=== PATIENT | female | born 1970 | race Hispanic/Latino ===

== ENCOUNTER → 2017-06-14 | Outpatient (CLI) | payer OTHER ==
--- NOTE | 2017-06-14 14:50 | Diagnostic Imaging Report ---
PROCEDURE: Frontal and lateral views of the chest. COMPARISON: None. INDICATIONS: PNEUMONIA FINDINGS: Lines/tubes: None. Lungs: The lungs are well inflated and clear. There is no evidence of pneumonia or pulmonary edema. A 1.1 cm nodular opacity projected over the left lower lung is probably nipple shadow. Pleura: There is no pleural effusion or pneumothorax. Heart and mediastinum: The heart and the mediastinum are normal. Bones: No acute bony abnormality. IMPRESSION: 1. No acute cardiopulmonary disease. 2. A 1.1 cm nodular opacity projected over the left lower lung is probably a nipple shadow. Recommend followup radiographs in 3 months to assure stability or resolution. Dictated by: Earl Greene M.D. on 06/14/2017 at 15:00 Electronically approved by: Earl Greene M.D. on 06/14/2017 at 15:00
== END ==
LOC: RAD 14:10
PROVIDERS: ATTEND Internal Medicine
DX: R05 Cough (principal)
CPT/HCPCS: 71046

== ENCOUNTER → 2017-07-05 | Outpatient (CLI) | payer OTHER ==
--- NOTE | 2017-07-05 16:06 | Diagnostic Imaging Report ---
PROCEDURE: CT CHEST WITHOUT CONTRAST CT scan of the chest WITHOUT intravenous contrast, using standard protocol. TECHNIQUE: The chest was scanned utilizing a multidetector helical scanner from the apex to the level of the adrenal glands. No IV contrast was administered because of physician request. Coronal and sagittal multiplanar reformations were obtained. DLP: 297.1 mGy-cm COMPARISON: Chest radiograph 06/14/2017 INDICATIONS: ABNORMAL CHEST XRAY FINDINGS: Lines/tubes: None. Lungs and Airways: Patchy opacities in the right middle lobe (for example series 2 image 89) and right lower lobe (for example series 3 image 28). A rounded 1.5 cm superior segment left lower lobe nodule as a tiny focus of cavitation (series 3 image 67). There is bronchial wall thickening, most prominent in the right middle and right lower lobes. Mild biapical pleural parenchymal scarring. Mild upper lobe predominant paraseptal emphysematous changes. Pleura: The pleural spaces are clear. Heart and mediastinum: The thyroid gland is normal. Mediastinal lymphadenopathy measuring up to 1.3 cm in short axis in the pretracheal station (series 2 image 53). The heart and pericardium are within normal limits. Minimal left anterior descending coronary artery calcification. Soft tissues: Normal. Abdomen: Limited views of the upper abdomen show no abnormality within the visualized liver, spleen, pancreas, or kidneys. The visualized portions of the adrenal glands are normal. Bones: The visualized bony thorax is within normal limits. IMPRESSION: 1. Patchy opacities in the right middle lobe and right lower lobe concerning for infection. 2. A left lower lobe round 1.5 cm nodule with tiny focus of cavitation may also represent the same process. Recommend follow up chest CT after appropriate therapy to document resolution. 3. Mediastinal lymphadenopathy, presumably reactive. This can be reevaluated at the time of follow up chest CT. Dictated by: Pablo Kerns M.D. on 07/05/2017 at 16:06 Electronically approved by: Pablo Kerns M.D. on 07/05/2017 at 16:06
== END ==
LOC: CT 15:12
PROVIDERS: ATTEND Family Medicine
DX: R93.8 Abnormal findings on diagnostic imaging of other specified body structures (principal)
CPT/HCPCS: 71250

== ENCOUNTER → 2017-08-30 | Outpatient (CLI) | payer OTHER ==
--- NOTE | 2017-08-30 13:26 | Diagnostic Imaging Report ---
EXAM: CT Chest WITH contrast 08/30/2017 12:00 PM INDICATION: \[id number] \S\1210 \S\CAVITATING MASS IN LEFT LOWER LUNG COMPARISON: Chest CT dated 07/05/2017 TECHNIQUE: Chest was scanned utilizing a multidetector helical scanner from the lung apex through the level of the adrenal glands without administration of IV contrast. Coronal and sagittal reformations were obtained. Routine protocol was performed. IV CONTRAST: 100 mL of Isovue-370 COMPLICATIONS: None RADIATION DOSE: Total DLP: 369.99 mGy*cm Estimated effective dose: (DLP x 0.014 x size factor) mSv CTDIvol has been reviewed. It is below the limits set by the Radiation Protocol Committee (RPC). FINDINGS: LINES/ TUBES: None. LUNGS AND AIRWAYS: Again seen biapical scarring. Airways are normal. 1 x 0.9 cm left lower lobe cavitary nodule previously measured 1.5 x 1.5 cm. There is increased cavitary component on today's exam. Medial right middle lobe and right lower lobe patchy opacities, seen on prior CT, have resolved. PLEURA: The pleural spaces are clear. HEART AND MEDIASTINUM: The thyroid gland is normal. 0.9 cm precarinal lymph node (series 2, image 52), previously 1.7 cm. Unchanged 0.7 cm prevascular lymph node (2/48). 0.3 cm right paratracheal lymph node previously measured 0.7 cm. No hilar adenopathy. Unchanged bilateral subcentimeter subpectoralis and axillary lymph nodes. For example 0.5 cm right subpectoralis (series 2, image 27) or 0.6 cm left axillary (2/27) lymph nodes. The heart is normal in size.. There is no pericardial effusion. UPPER ABDOMEN: Unremarkable. BONES: The visualized bony thorax is within normal limits. SOFT TISSUES: Unremarkable. IMPRESSION: Interval decrease in size of cavitary left lower lobe nodule as well as resolution of the right middle and lower lobe opacities, seen on CT dated 07/05/2017. Interval decrease in mediastinal lymphadenopathy. Signed by: Dr. Emmanuel Carter MD on 08/30/2017 1:23 PM
== END ==
LOC: CT 11:50
PROVIDERS: ATTEND Family Medicine
DX: R91.8 Other nonspecific abnormal finding of lung field (principal)
CPT/HCPCS: 71260

== ENCOUNTER → 2017-11-15 | Outpatient (CLI) | payer OTHER ==
--- NOTE | 2017-11-16 10:08 | Diagnostic Imaging Report ---
#[id number] - USBRELIMLT ULTRASOUND OF THE LEFT BREAST : 11/15/2017 Comparison is made to exam dated: 11/15/2017 mammogram - [facility]. Color flow and real-time ultrasound were performed on the left breast with focused ultrasound scanning from 6 - 9 o'clock. At the 8 o'clock position 3 cm from the nipple is a benign cyst measuring 5 x 3 x 4 mm. This corresponds to the mammographic finding. IMPRESSION: BENIGN There is no sonographic evidence of malignancy. A 1 year screening mammogram is recommended. Shankar Goyal Jr., D.O. cw/:11/15/2017 12:38:13 Film Waxer: SHIKHA DAMON, [facility] letter sent: Normal Exam Ultrasound BI-RADS: 2 Benign
--- NOTE | 2017-11-16 10:08 | Diagnostic Imaging Report ---
#[id number] - MGDXBIL #BILATERAL DIGITAL DIAGNOSTIC MAMMOGRAM WITH CAD: 11/15/2017 No prior exams were available for comparison. Current study contains 8 films. The tissue of both breasts is heterogeneously dense. This may lower the sensitivity of mammography. Current study was also evaluated with a Computer Aided Detection (CAD) system. There is a 5 mm oval mass in the left breast at 8 o'clock anterior depth. Non grouped scattered calcifications in the right breast have a benign appearance. No other significant masses, calcifications, or other findings are seen in either breast. IMPRESSION: INCOMPLETE: NEEDS ADDITIONAL IMAGING EVALUATION The 5 mm oval mass in the left breast is indeterminate. An ultrasound is recommended and will be performed today. Shankar Goyal Jr., D.O. cw/:11/15/2017 12:34:06 Observation Assistant: Joie DAMON(Chitra)(M), [facility] letter sent: Additional Imaging Needed Mammogram BI-RADS: 0 Indeterminate
== END ==
LOC: MAMMO 09:41
PROVIDERS: ATTEND Family Medicine
DX: N64.4 Mastodynia (principal)
CPT/HCPCS: 77066

== ENCOUNTER → 2018-01-21 | Outpatient (CLI) | payer OTHER ==
--- NOTE | 2018-01-21 14:08 | Diagnostic Imaging Report ---
EXAM: CT Chest WITHOUT contrast 01/21/2018 10:23 AM INDICATION: \[id number] \S\1100 \S\DISORDERS OF LUNG COMPARISON: CT chest 08/30/2017 and 07/05/2017 TECHNIQUE: Chest was scanned utilizing a multidetector helical scanner from the lung apex through the level of the adrenal glands without administration of IV contrast. Absence of intravenous contrast decreases sensitivity for detection of lymphadenopathy and vascular pathology. Coronal and sagittal reformations were obtained. Routine protocol was performed. IV CONTRAST: None COMPLICATIONS: None RADIATION DOSE: Total DLP: 351.2 mGy*cm Estimated effective dose: (DLP x 0.015 x size factor) mSv CTDIvol has been reviewed. It is below the limits set by the Radiation Protocol Committee (RPC). FINDINGS: LINES/ TUBES: None. LUNGS AND AIRWAYS: Continued decrease in size of the left lower lobe pulmonary nodule previously associated with a small cavitation, now measuring 8 mm compared to 10 mm on 08/30/2017 and 15 mm on 07/05/2017. There are no new satellite pulmonary nodules or cavitations. Minimal residual bronchiectasis and peribronchial wall thickening in the right central upper and lower lobes likely sequela of the previously seen infection. Stable bilateral apical pleuroparenchymal scarring. PLEURA: The pleural spaces are clear. HEART AND MEDIASTINUM: The thyroid gland is normal. Stable noncalcified mediastinal lymph nodes with the largest measuring 1.3 x 0.9 cm in the right lower paratracheal region on series 2, image 50. The heart is normal in size. Trace pericardial effusion. Mild coronary artery calcifications. The thoracic aorta normal in caliber and associated with mild atherosclerotic calcifications. The main pulmonary artery normal in caliber measuring 2.5 cm. UPPER ABDOMEN: Unremarkable. BONES: The visualized bony thorax is within normal limits. SOFT TISSUES: Unremarkable. IMPRESSION: Continued decreasing size of the left lower lobe nodule, now without cavitation and measuring 8 mm, compared to 10 mm on 08/30/2017 and 15 mm on 07/05/2017. Findings suggestive of infectious etiology. No new pulmonary nodules or consolidations. Recommend follow-up CT chest without contrast in 6 months to demonstrate stability. Signed by: Dr. Gabi Brewster M.D. on 01/21/2018 2:04 PM
== END ==
LOC: CT 10:06
PROVIDERS: ATTEND Internal Medicine Pulmonary Disease
DX: J98.4 Other disorders of lung (principal)
CPT/HCPCS: 71250

== ENCOUNTER → 2018-02-09 | Outpatient (CLI) | payer OTHER ==
[2018-02-09 11:18] LABS: ALBUMIN 4.3 g/dL (3.5-5.0); BILIRUBIN,DIRECT 0.2 mg/dL (0.0-0.5)
== END ==
LOC: LAB 10:26
PROVIDERS: ATTEND Podiatrist Foot & Ankle Surgery
DX: B35.1 Tinea unguium (principal)
CPT/HCPCS: 36415; 80076

== ENCOUNTER → 2018-04-19 | Outpatient (CLI) | payer OTHER ==
[~2018-04-19] MED LIST: IOPAMIDOL 370 MG/ML 200 ML INFUS..BTL INJ ONE; RANITIDINE HCL300 MG; SODIUM CHLORIDE 0.9% 50ML 50 ML ONE; TYLENOL; levothyroxine
--- NOTE | 2018-04-19 10:07 | Diagnostic Imaging Report ---
PROCEDURE: CT ABDOMEN AND PELVIS WITH CONTRAST TECHNIQUE: The abdomen and pelvis were scanned utilizing a multidetector helical scanner from the diaphragm to the lesser trochanter after the IV administration of 100 cc of Isovue 370 and the oral administration of water. Coronal and sagittal multiplanar reformations were obtained. COMPARISON: Chest CT without contrast 01/21/2018. INDICATIONS: LEFT UPPER QUADRANT PAIN FINDINGS: LOWER THORAX: Normal. HEPATOBILIARY: No focal hepatic lesions. No biliary ductal dilatation. SPLEEN: No splenomegaly. PANCREAS: No focal masses or ductal dilatation. ADRENALS: No adrenal nodules. KIDNEYS/URETERS: Subcentimeter hypoattenuating lesion in the left kidney is too small to further characterize but likely to represent a small cyst. No hydronephrosis, calculi, or gross mass lesion. PELVIC ORGANS/BLADDER: Urinary bladder is unremarkable. Uterus is anteflexed and appears normal. Bilateral tubal ligation clips. No adnexal mass. PERITONEUM / RETROPERITONEUM: No free air or fluid. LYMPH NODES: No pelvic sidewall, retroperitoneal, or mesenteric lymphadenopathy. VESSELS: The abdominal aorta, major branch vessels, and iliac arterial systems are patent with mild atherosclerotic calcification. 2 right renal arteries and a single left renal artery. Portal vein, splenic vein, and the central superior mesenteric vein are patent. GI TRACT: The large bowel shows no evidence of distention or wall thickening. Gas and fecal material are noted throughout. The appendix is normal. No small bowel dilatation to suggest obstruction. BONES AND SOFT TISSUES: No focal soft tissue abnormalities. No osseous destructive lesions. IMPRESSION: No acute intra-abdominal or pelvic CT abnormalities. Mild atherosclerotic vascular disease. Dictated by: Ismael Fried M.D. on 04/19/2018 at 10:18 Electronically approved by: Ismael Fried M.D. on 04/19/2018 at 10:18
== END ==
LOC: CT 08:36
PROVIDERS: ATTEND Family Medicine
DX: R10.12 Left upper quadrant pain (principal)
CPT/HCPCS: 74177; Q9967

== ENCOUNTER → 2018-05-02 | Day surgery (SDC) | payer OTHER ==
[~2018-05-02] MED LIST changes: +FENTANYL CITRATE/PF 100MCG/2 ML INJ ONE; -IOPAMIDOL 370 MG/ML 200 ML INFUS..BTL INJ ONE; +MIDAZOLAM HCL 2 MG/2 ML VIAL ONE; +PROPOFOL IV EMULSION 10 MG/ML 50 ML VIAL ONE; -SODIUM CHLORIDE 0.9% 50ML 50 ML ONE
--- OUTSIDE RECORDS SUMMARY | 2018-05-02 10:32 | XMS REPORT ---
Author [facility] Address Unknown Phone Unavailable Care Team Providers Care Leadite Heater Name Role Phone ATIF BERNABE Unavailable Unavailable ROGER PAULINO Unavailable Unavailable SARAH BERNABE Unavailable Unavailable RON BENOIT Unavailable Unavailable Problems This patient has no known problems. Allergies, Adverse Reactions, Alerts This patient has no known allergies or adverse reactions. Medications This patient has no known medications. Encounters Start Date/Time End Date/Time Encounter Type Admission Type Attending [facility] Care Department Encounter ID 2017-04-23 00:00:00 2017-04-23 00:00:[address] [facility] [id number] 2017-01-26 07:57:35 2017-01-26 07:57:[address] [facility] [id number] 2016-12-31 00:00:00 2016-12-31 00:00:[address] [facility] [id number] 2016-12-11 08:36:10 2016-12-11 08:36:[address] [facility] [id number] 2016-12-11 08:00:17 2016-12-11 08:00:[address] [facility] [id number] 2016-12-03 12:50:40 2016-12-03 12:50:[address] [facility] [id number] 2016-11-19 13:03:41 2016-11-19 13:03:[address] [facility] [id number] 2016-11-19 00:00:00 2016-11-19 00:00:[address] [facility] [id number] 2016-11-12 00:00:00 2016-11-12 00:00:[address] [facility] [id number] 2016-11-06 00:00:00 2016-11-06 00:00:[address] [facility] [id number] 2016-11-06 00:00:00 2016-11-06 00:00:[address] [facility] [id number] 2016-11-06 00:00:00 2016-11-06 00:00:[address] [facility] [id number] 2016-10-22 08:10:32 2016-10-22 08:10:[address] [facility] [id number] 2016-10-19 11:55:24 2016-10-19 11:55:[address] [facility] [id number] 2016-10-19 11:05:11 2016-10-19 11:05:[address] [facility] [id number] 2016-10-19 00:00:00 2016-10-19 00:00:[address] [facility] [id number] 2016-10-19 00:00:00 2016-10-19 00:00:[address] [facility] [id number] Results Test Description Test Time Test Comments Text Results Atomic Results Result Comments CT ABDOMEN/PELVIS W 2018-04-19 10:18:00 [place] [address] Patient Name: TEJ CHEN MR #: [id number] : 1970 Age/Sex: 47/F Req #: [id number] Adm Physician: Ordered by: ATIF BERNABE DO Report #: [id number] Location: CT Room/Bed: Procedure: [id number] CT/CT ABDOMEN/PELVIS W Exam Date: 04/19/18 Exam Time: 0940 REPORT STATUS: Signed PROCEDURE: CT ABDOMEN AND PELVIS WITH CONTRAST TE CHNIQUE: The abdomen and pelvis were scanned utilizing a multidetector helical scanner from the diaphragm to the lesser trochanter after the IV administration of 100 cc of Isovue 370 and the oral administration of water. Coronal and sagittal multiplanar reformations were obtained. COMPARISON: Chest CT without contrast 01/21/2018. INDICATIONS: LEFT UPPER QUADRANT PAIN FINDINGS: LOWER THORAX: Normal. HEPATOBILIARY: No focal hepatic lesions. No biliary ductal dilatation. SPLEEN: No splenomegaly. PANCREAS: No focal masses or ductal dilatation. ADRENALS: No adrenal nodules. KIDNEYS/URETERS: Subcentimeter hypoattenuating lesion in the left kidney is too small to further characterize but likely to represent a small cyst. No hydronephrosis, calculi, or gross mass lesion. PELVIC ORGANS/BLADDER: Urinary bladder is unremarkable. Uterus is anteflexed and appears normal. Bilateral tubal ligation clips. No adnexal mass. PERITONEUM / RETROPE RITONEUM: No free air or fluid. LYMPH NODES: No pelvic sidewall, retroperitoneal, or mesenteric lymphadenopathy. VESSELS: The abdominal aorta, major branch vessels, and iliac arterial systems are patent with mild atherosclerotic calcification. 2 right renal arteries and a single left renal artery. Portal vein, splenic vein, and the central superior mesenteric vein are patent. GI TRACT: The large bowel shows no evidence of distention or wall thickening. Gas and fecal material are noted throughout. The appendix is normal. No small bowel dilatation to suggest obstruction. BONES AND SOFT TISSUES: No focal soft tissue abnormalities. No osseous destructive lesions. IMPRESSION: No acute intra-abdominal or pelvic CT abnormalities. Mild atherosclerotic vascular disease. Dictated by: Paul Davis M.D. on 04/19/2018 at 10:18 Electronically approved by: Paul Davis M.D. on 04/19/2018 at 10:18 Dictated By: PAUL DAVIS MD 1018 Transcribed By: RADHA on 04/19/18 1018 COPY TO: ATIF BERNABE DO CT CHEST WO 2018-01-21 13:48:00 [place] [address] Patient Name: TEJ CHEN MR #: [id number] : 1970 Age/Sex: 47/F Req #: [id number] Adm Physician: Ordered by: ROGER PAULINO MD Report #: [id number] Location: CT Room/Bed: Procedure: [id number] CT/CT CHEST WO Exam Date: 01/21/18 Exam Time: 1100 REPORT STATUS: Signed EXAM: CT Chest WITHOUT contrast 01/21/2018 10:23 AM INDICATION: COMPARISON: CT chest 08/30/2017 and 07/05/2017 TECHNIQUE: Chest was scanned utilizing a multidetector helical scanner from the lung apex through the level of the adrenal glands without administration of IV contrast. Absence of intravenous contrast decreases sensitivity for detection of lymphadenopathy and vascular pathology. Coronal and sagittal reformations were obtained. Routine protocol was performed. IV CONTRAST: None COMPLICATIONS: None RADIATION DOSE: Total DLP: 351.2 mGy*cm Estimated effective dose: (DLP x 0.015 x size factor) mSv CTDIvol has been reviewed. It is below the limits set by the Radiation Protocol Committee (RPC). FINDINGS: LINES/ TUBES: None. LUNGS AND AIRWAYS: Continu ed decrease in size of the left lower lobe pulmonary nodule previously associated with a small cavitation, now measuring 8 mm compared to 10 mm on 08/30/2017 and 15 mm on 07/05/2017. There are no new satellite pulmonary nodules or cavitations. Minimal residual bronchiectasis and peribronchial wall thickening in the right central upper and lower lobes likely sequela of the previously seen infection. Stable bilateral apical pleuroparenchymal scarring. PLEURA: The pleural spaces are clear. HEART AND MEDIASTINUM: The thyroid gland is normal. Stable noncalcified mediastinal lymph nodes with the largest measuring 1.3 x 0.9 cm in the right lower paratracheal region on series 2, image 50. The heart is normal in size. Trace pericardial effusion. Mild coronary artery calcifications. The thoracic aorta normal in caliber and associated with mild atherosclerotic calcifications. The main pulmonary artery normal in caliber measuring 2.5 cm. UPPER ABDOMEN: Unremarkable. BONES: The visualized bony thorax is within normal limits. SOFT TISSUES: Unremarkable. IMPRESSION: Continued decreasing size of the left lower lobe nodule, now without cavitation and measuring 8 mm, compared to 10 mm on 08/30/2017 and 15 mm on 07/05/2017. Findings suggestive of infectious etiology. No new pulmonary nodules or consolidations. Recommend follow-up CT chest without contrast in 6 months to demonstrate stability. Signed by: Dr. Gabi Rutherford M.D. on 01/21/2018 2:04 PM Dictated By: GABI RUTHERFORD MD 03 Transcribed By: ALYSIA on 01/21/181403 COPY TO: ROGER PAULINO MD US BREAST LIMITED LEFT 2017-11-15 11:10:00 [place] [address] Patient Name: TEJ CHEN MR #: [id number] : 1970 Age/Sex: 47/F Req #: [id number] Adm Physician: Ordered by: ATIF BERNABE DO Report #: [id number] Location: MAMMO Room/Bed: Procedure: [id number] US/US BREAST LIMITED LEFT Exam Date: Exam Time: REPORT STATUS: Signed #[id number] - USBRELIMLT ULTRASOUND OF THE LEFT BREAST : 11/15/2017 Comparison is made to exam dated: 11/15/2017 mammogram - [facility]. Color flow and real-time ultrasound were performed on the left breast with focused ultrasound scanning from 6 - 9 o'clock. At the 8 o'clock position 3 cm from the nipple is a benign cyst measuring 5 x 3 x 4 mm. This corresponds to the mammographic finding. IMPRESSION: BENIGN There is no sonographic evidence of malignancy. A 1 year screening mammogram is recommended. Shankar Goyal Jr., D.O. cw/:11/15/2017 12:38:13 Artificial Pearl Maker: SHIKHA BRISENO RT, [facility] letter sent: Normal Exam Ultrasound BI-RADS: 2 Benign Dictated By: SHANKAR GOYAL DO 1238 Transcribed By: SANDRO on 11/15/17 1238 COPY TO: ATIF BERNABE DO MAMMOGRAPHY DIGITAL DX BILAT 2017-11-15 11:10:00 [facility] [address] [place] [address] Patient Name: TEJ CHEN MR #: [id number] : 1970 Age/Sex: 47/F Req #: [id number] Adm Physician: Ordered by: ATIF BERNABE DO Report #: [id number] Location: MAMMO Room/Bed: Procedure: [id number] MG/MAMMOGRAPHY DIGITAL DX BILAT Exam Date: 11/15/17 Exam Time: 1033 REPORT STATUS: Signed THIS REPORT HAS BEEN AMENDED. #[id number] - MGDXBIL #BILATERAL DIGITAL DIAGNOSTIC MAMMOGRAM WITH CAD: 11/15/2017 No prior exams were available for comparison. Current study contains 8 films. The tissue of both breasts is heterogeneously dense. This may lower the sensitivity of mammography. Current study was also evaluated with a Computer Aided Detection (CAD) system. There is a 5 mm oval mass in the left breast at 8 o'clock anterior depth. Non grouped scattered calcifications in the right breast have a benign appearance. No other significant masses, calcifications, or other findings are seen in either breast. IMPRESSION: INCOMPLETE: NEEDS ADDITIONAL IMAGING EVALUATION The 5 mm oval mass in the left breast is indeterminate. An ultrasound is recommended and will be performed today. Shankar Goyal Jr., D.O. cw/:11/15/2017 12:34:06 Artificial Pearl Maker: Joie LAMAR)(Ken), [facility] letter sent: Additional Imaging Needed Mammogram BI-RADS: 0 Indeterminate AMENDMENT: 12/27/2017 Shankar Goyal Jr., D.O. Comparison to outside mammograms dated 11/19/2016 from [facility] is now possible as they have become available. There is no significant interval change from the old studies. The nodule at 8 o'clock in the left breast is stable. Amended BI-RADS: 0 Indeterminate Dictated By: SHANKAR GOYAL DO 1234 Transcribed By: SANDRO on 12/27/17 0853 COPY TO: ATIF BERNABE DO CT CHEST W [place] [address] Patient Name: TEJ CHEN MR #: [id number] : 1970 Age/Sex: 46/F Req #: [id number] Adm Physician: Ordered by: BERNABE ANDREW DO Report #: [id number] Location: CT Room/Bed: Procedure: [id number] CT/CT CHEST W Exam Date: 08/30/17 Exam Time: 1210 REPORT STATUS: Signed EXAM: CT Chest WITH contrast 08/30/2017 12:00 PM INDICATION: COMPARISON: Chest CT dated 07/05/2017 TECHNIQUE: Chest was scanned utilizing a multidetector helical scanner from the lung apex through the level of the adrenal glands without administration of IV contrast. Coronal and sagittal reformations were obtained. Routine protocol was performed. IV CONTRAST: 100 mL of Isovue-370 COMPLICATIONS: None RADIATION DOSE: Total DLP: 369.99 mGy*cm Estimated effective dose: (DLP x 0.014 x size factor) mSv CTDIvol has been reviewed. It is below the limits set by the Radiation Protocol Committee (RPC). FINDINGS: LINES/ TUBES: None. LUNGS AND AIRWAYS: Again seen biapical scarring. Airways are normal. 1 x 0.9 cm left lower lobe cavitary nodule previously measured 1.5 x 1.5 cm. There is increased cavitary component on today's exam. Medial right middle lobe and right lower lobe patchy opacities, seen on prior CT, have resolved. PLEURA: The pleural spaces are clear. HEART AND MEDIASTINUM: The thyroid gland is normal. 0.9 cm precarinal lymph node (series 2, image 52), previously 1.7 cm. Unchanged 0.7 cm prevascular lymph node (2/48). 0.3 cm right paratracheal lymph node previously measured 0.7 cm. No hilar adenopathy. Unchanged bilateral subcentimeter subpectoralis and axillary lymph nodes. For example 0.5 cm right subpectoralis (series 2, image 27) or 0.6 cm left axillary (2/27) lymph nodes. The heart is normal in size.. There is no pericardial effusion. UPPER ABDOMEN: Unremarkable. BONES: The visualized bony thorax is within normal limits. SOFT TISSUES: Unremarkable. IMPRESSION: Interval decrease in size of cavitary left lower lobe nodule as well as resolution of the right middle and lower lobe opacities, seen on CT dated 07/05/2017. Interval decrease in mediastinal lymphadenopathy. Signed by: Dr. Emmanuel Fiore MD on 08/30/2017 1:23 PM Dictated By: EMMANUEL FIORE MD 1323 Transcribed By: ALYSIA on 08/30/17 1323 COPY TO: SARAH BERNABE DO CT CHEST [place] [address] Patient Name: TEJ CHEN MR #: [id number] : 1970 Age/Sex: 46/F Req #: [id number] Adm Physician: Ordered by: ATIF BERNABE DO Report #: [id number] Location: CT Room/Bed: Procedure: [id number] CT/CT CHEST WO Exam Date: Exam Time: REPORT STATUS: Signed PROCEDURE: CT CHEST WITHOUT CONTRAST CT scan of the chest WITHOUT intravenous contrast, using standard protocol. TECHNIQUE: The chest was scanned utilizing a multidetector helical scanner from the apex to the level of the adrenal glands. No IV contrast was administered because of physician request. Coronal and sagittal multiplanar reformations were obtained. DLP: 297.1 mGy-cm COMPARISON: Chest radiograph 06/14/2017 INDICATIONS: ABNORMAL CHEST XRAY FINDINGS: Lines/tubes: None. Lungs and Airways: Patchy opacities in the right middle lobe (for example series 2 image 89) and right lower lobe (for example series 3 image 28). A rounded 1.5 cm superior segment left lower lobe nodule as a tiny focus of cavitation (series 3 image 67). There is bronchial wall thickening, most prominent in the right middle and right lower lobes. Mild biapical pleural parenchymal scarring. Mild upper lobe predominant paraseptal emphysematous changes. Pleura: The pleural spaces are clear. Heart and mediastinum: The thyroid gland is normal. Mediastinal lymphadenopathy measuring up to 1.3 cm in short axis in the pretracheal station (series 2 image 53). The heart and pericardium are within normal limits. Minimal left anterior descending coronary artery calcification. Soft tissues: Normal. Abdomen: Limited views of the upper abdomen show no abnormality within the visualized liver, spleen, pancreas, or kidneys. The visualized portions of the adrenal glands are normal. Bones: The visualized bony thorax is within normal limits. IMPRESSION: 1. Patchy opacities in the right middle lobe and right lower lobe concerning for infection. 2. A left lower lobe round 1.5 cm nodule with tiny focus of cavitation may also represent the same process. Recommend follow up chest CT after appropriate therapy to document resolution. 3. Mediastinal lymphadenopathy, presumably reactive. This can be reevaluated at the time of follow up chest CT. Dictated by: Pablo Vaz M.D. on 07/05/2017 at 16:06 Electronically approved by: Pablo Vaz M.D. on 07/05/2017 at 16:06 Dictated By: PABLO VAZ MD 1606 Transcribed By: RADHA on 07/05/17 1606 COPY TO: ATIF BERNABE DO CHEST 2 VIEWS [place] [address] Patient Name: TEJ CHEN MR #: [id number] : 1970 Age/Sex: 46/F Req #: [id number] Adm Physician: Ordered by: RON BENOIT MD Report #: [id number] Location: [facility] Room/Bed: Procedure: [id number] DX/CHEST 2 VIEWS Exam Date: 06/14/17 Exam Time: 1420 REPORT STATUS: Signed PROCEDURE: Frontal and lateral views of the chest. COMPARISON: None. INDICATIONS: PNEUMONIA FINDINGS: Lines/tubes: None. Lungs: The lungs are well inflated and clear. There is no evidence of pneumonia or pulmonary edema. A 1.1 cm nodular opacity projected over the left lower lung is probably nipple shadow. Pleura: There is no pleural effusion or pneumothorax. Heart and mediastinum: The heart and the mediastinum are normal. Bones: No acute bony abnormality. IMPRESSION: 1. No acute cardiopulmonary disease. 2. A 1.1 cm nodular opacity projected over the left lower lung is probably a nipple shadow. Recommend followup radiographs in 3 months to assure stability or resolution. Dictated by: Jesús Greene M.D. on 06/14/2017 at 15:00 Electronically approved by: Jesús Greene M.D. on 06/14/2017 at 15:00 Dictated By: JESÚS GREENE MD 1500 Transcribed By: RADHA on 06/14/17 1500 COPY TO: RON BENOIT MD
[2018-05-02 13:05] VITALS: BP 100/70
--- NOTE | 2018-05-02 13:19 | Operative Report ---
DATE OF PROCEDURE: May 02, 2018 REFERRING PHYSICIAN: Dr. Sarah Bernabe. PROCEDURE PERFORMED: Esophagogastroduodenoscopy with biopsies and brushings. INDICATIONS FOR ESOPHAGOGASTRODUODENOSCOPY: Acid reflux, bloating. MEDICATION: Patient was done under MAC. Please see anesthesiologist's note. PROCEDURE: With the patient in left lateral decubitus position, flexible fiberoptic Olympus gastroscope was introduced into the esophagus under direct visualization without any difficulty. There were some scattered whitish plaques noted in the esophagus and brushings were obtained and sent to rule out Farideh. The scope was then advanced with ease into the stomach and the mucosa overlying the antrum and the body revealed some patchy erythema and low-grade edema and biopsies were obtained and sent to stain for H. pylori. The pylorus was of normal contour and shape. It was intubated with ease and the scope was advanced all the way to the 2nd portion of the duodenum. The scope was then withdrawn slowly and biopsies were obtained from the proximal 2nd portion and the duodenal bulb to rule out sprue. The scope was then withdrawn back into the stomach and retroflexed. Mucosa overlying the fundus and the cardia appeared to be within normal limits. The scope was then straightened out. It was subsequently withdrawn. Patient tolerated the procedure well. IMPRESSION: 1. Rule out Farideh esophagitis. 2. Gastritis biopsied. Biopsy sent to stain for H. pylori. 3. Rule out sprue. PLAN: Follow up histology. Initiate Protonix 40 mg 1 p.o. q.a.m. a.c. Continue Zantac 300 mg 1 p.o. nightly. Job#: [id number] cc:SARAH BERNABE DO
== END | disposition home or self-care (01) ==
LOC: ENDO 10:29
PROVIDERS: ATTEND Internal Medicine Gastroenterology
DX: K29.70 Gastritis, unspecified, without bleeding (principal); K21.9 Gastro-esophageal reflux disease without esophagitis; K22.8 Other specified diseases of esophagus; G43.909 Migraine, unspecified, not intractable, without status migrainosus; E03.9 Hypothyroidism, unspecified; Z87.891 Personal history of nicotine dependence
CPT/HCPCS: 43239; 81025; J2250

== ENCOUNTER → 2018-08-23 | Outpatient (CLI) | payer OTHER ==
[~2018-08-23] MED LIST changes: -FENTANYL CITRATE/PF 100MCG/2 ML INJ ONE; +GADOBENATE DIMEGLUMINE 1 ML IV ONE; -MIDAZOLAM HCL 2 MG/2 ML VIAL ONE; -PROPOFOL IV EMULSION 10 MG/ML 50 ML VIAL ONE
--- NOTE | 2018-08-23 20:06 | Diagnostic Imaging Report ---
Hepatobiliary Scan with Gallbladder Ejection Fraction Clinical information: Abdominal pain Technique: Following intravenous administration of 7.1 millicuries of Tc-99m mebrofenin, dynamic images of the abdomen in the anterior projection were obtained through 30 minutes. Sincalide (CCK analog) 1.6 micrograms was administered intravenously over 30 minutes with additional imaging for determination of gallbladder ejection fraction. Discussion: Perfusion of the liver is normal. Extraction of tracer by the liver parenchyma is normal. Tracer appears promptly within the biliary tract. The gallbladder begins to fill by 20 minutes post injection of tracer and fills adequately. Tracer is seen in the small bowel by 12 minutes. The gallbladder ejection fraction with sincalide is 35% (normal greater than 40%). Impression: 1. Filling of the gallbladder excludes acute cystic duct obstruction/acute cholecystitis. 2. The decreased gallbladder ejection fraction of 35% supports the clinical diagnosis of chronic cholecystitis/gallbladder dyskinesia. Signed by: Dr. Joie Soto M.D. on 08/23/2018 8:03 PM
== END ==
LOC: MRI 07:55
PROVIDERS: ATTEND Internal Medicine Gastroenterology
DX: K21.9 Gastro-esophageal reflux disease without esophagitis (principal); R10.9 Unspecified abdominal pain; K29.70 Gastritis, unspecified, without bleeding
CPT/HCPCS: 74183; 78227; A9537